=== PATIENT | male | born 1950 | race Caucasian/White ===

== ENCOUNTER → 2019-12-19 | Outpatient (CLI) | payer MEDICARE, OTHER ==
--- NOTE | 2019-12-20 09:06 | ECHOF ---
Referral Reason:R94.31 Abnormal ekg MEASUREMENTS -------- HEIGHT: 180.3 cm WEIGHT: 86.2 kg BP: IVSd: 1.3 cm (0.6 - 1.1) LVIDd: 5.3 cm (3.9 - 5.3) LVPWd: 1.3 cm (0.6 - 1.1) IVSs: 1.5 cm LVIDs: 3.2 cm LVPWs: 2.0 cm LAESV Index (A-L): 24.81 ml/m Ao Diam: 3.2 cm (2.0 - 3.7) AV Cusp: 1.6 cm (1.5 - 2.6) LA Diam: 4.0 cm (2.7 - 3.8) MV EXCURSION: 21.171 mm (> 18.000) MV EF SLOPE: 116 mm/s (70 - 150) EPSS: 3.4 cm MV E Charlie: 1.19 m/s MV DecT: 226 ms MV A Charlie: 0.83 m/s MV E/A Ratio: 1.43 AV maxP.39 mmHg AV meanP.53 mmHg RAP: 5.00 mmHg RVSP: 11.44 mmHg FINDINGS -------- Resting bradycardia (HR<60bpm). This was a technically good study. The left ventricular size is normal. There is mild concentric left ventricular hypertrophy. Overa ll left ventricular systolic function is low-normal with, an EF between 50 - 55 %. Normal LAP. Grad e 1 Diastolic Dysfunction. The right ventricle is normal in size. The left atrial size is normal. Normal LA size by volume 22+/-6 ml/m2. The right atrial size is normal. The aortic valve was not well visualized. There is mild aortic stenosis present. Peak/mean gradie nt across the Aortic Valve is 20.39mmHg / 12.53mmHg. Can't exclude possible Bicuspid Aov. The mitral valve is normal. Mild mitral regurgitation is present. The tricuspid valve appears structurally normal. Mild tricuspid regurgitation present. Right vent ricular systolic pressure is normal at < 35 mmHg. There is no pulmonic regurgitation present. The aortic root size is normal. Normal inferior vena cava with normal inspiratory collapse consistent with estimated right atrial pre ssure of 5 mmHg. There is no pericardial effusion. CONCLUSIONS -------- 1. Resting bradycardia (HR<60bpm). 2. This was a technically good study. 3. The left ventricular size is normal. 4. There is mild concentric left ventricular hypertrophy. 5. Overall left ventricular systolic function is low-normal with, an EF between 50 - 55 %. 6. Normal LAP. Grade 1 Diastolic Dysfunction. 7. The right ventricle is normal in size. 8. The left atrial size is normal. 9. Normal LA size by volume 22+/-6 ml/m2. 10. The right atrial size is normal. 11. The aortic valve was not well visualized. 12. There is mild aortic stenosis present. 13. Peak/mean gradient across the Aortic Valve is 20.39mmHg / 12.53mmHg. 14. Can't exclude possible Bicuspid Aov. 15. The mitral valve is normal. 16. Mild mitral regurgitation is present. 17. The tricuspid valve appears structurally normal. 18. Mild tricuspid regurgitation present. 19. Right ventricular systolic pressure is normal at < 35 mmHg. 20. There is no pulmonic regurgitation present. 21. The aortic root size is normal. 22. Normal inferior vena cava with normal inspiratory collapse consistent with estimated right atrial pressure of 5 mmHg. 23. There is no pericardial effusion. [employer] HAND: Char Figueredo RDCS
== END | disposition home or self-care (01) ==
LOC: RADECHMAIN 12:55
PROVIDERS: ATTEND Family Medicine
DX: I08.3 Combined rheumatic disorders of mitral, aortic and tricuspid valves (principal)
CPT/HCPCS: 93306

== ENCOUNTER → 2019-12-21 | Outpatient (CLI) | payer MEDICARE, OTHER ==
[2019-12-21 13:24] LABS: HCT 44.6 % (39.0-53.0); HGB 14.6 gm/dL (13.0-17.5); MCH 31.4 pg (25.0-35.0); MCHC 32.7 g/dL (31.0-37.0); MCV 96.2 fL (80.0-100.0); Mean Platelet Volume 7.7; Platelet Count 173 k/uL (150-450); RBC 4.64 m/uL (4.30-5.90); WBC 6.8 k/uL (3.8-10.6)
[2019-12-21 13:31] LABS: African American GFR (CKD) >90 (>60 ml/min/1.73 sqM); Anion Gap 7 mmol/L; Blood Urea Nitrogen 18 mg/dL (9-20); Carbon Dioxide 31 mmol/L (22-30); Chloride 103 mmol/L (98-107); Glucose 128 mg/dL (74-99); Non-African American GFR(CKD) 89 (>60 ml/min/1.73 sqM); Potassium 4.1 mmol/L (3.5-5.1); Sodium 141 mmol/L (137-145)
== END | disposition home or self-care (01) ==
LOC: LABPAT 12:24
PROVIDERS: ATTEND Internal Medicine Cardiovascular Disease
DX: Z01.812 Encounter for preprocedural laboratory examination (principal); E78.5 Hyperlipidemia, unspecified; R94.31 Abnormal electrocardiogram [ECG] [EKG]
CPT/HCPCS: 80051; 82565; 82947; 84520; 85027

== ENCOUNTER 2019-12-27 09:52 | Day surgery (SDC) | payer MEDICARE, OTHER ==
[2019-12-25 11:03] VITALS: BMI 27.2
[~2019-12-27 09:52] MED LIST: ceFAZolin 1,000 MG in SODIUM CHLORIDE 0.9% IRRIGATIO 250 ML IRRIGATION ONE
[2019-12-27] MEDS ORDERED: SODIUM CHLORIDE 0.9% 500 ML 500 ML IV ONE (10:15)
[2019-12-27] MEDS ORDERED: IOPAMIDOL-250 100ML BTL IV ONE (11:15)
[2019-12-27] MEDS ORDERED: fentaNYL (PF) 50 MCG/ML 2 ML AMP ONE (11:20)
[2019-12-27] MEDS ORDERED: fentaNYL (PF) 50 MCG/ML 2 ML AMP IV ONE (11:31)
[2019-12-27] MEDS ORDERED: MIDAZOLAM 2 MG/2 ML VIAL IVP ONE ×2 (11:32→13:00)
[2019-12-27] MEDS ORDERED: LIDOCAINE 1% INJ 10MG/ML (20 ML MDV) SQ ONE ×2 (11:39→11:46)
[2019-12-27] MEDS ORDERED: LIDOCAINE 1% INJ 10MG/ML (20 ML MDV) ONE (12:32)
--- NOTE | 2019-12-27 13:52 | P.PCN ---
Date of Procedure: 12/27/19 Preoperative Diagnosis: Complete heart block and bradycardia Postoperative Diagnosis: The same Procedure(s) Performed: Insertion of temporary pacemaker and dual-chamber permanent pacemaker insertion and also axillary venography Description of Procedure: HISTORY: This is a 69-year-old gentleman who was recently found to have bradycardia and complete A-V block. Patient was referred for permanent pacemaker implantation. CONSENT:I have discussed the risks, benefits and alternative therapies for the above-mentioned procedure and for both sedation/analgesia as well as necessary blood product administration, if indicated, as they pertain to this patient. The patient has indicated understanding and acceptance of the risks and procedures discussed. PROCEDURE: TEMPORARY PACEMAKER INSERTION: The right groin is infiltrated with lidocaine, after giving IV sedation with Versed and fentanyl. Attempts were made to enter the femoral vein and successfully . Femoral artery was entered with a needle. After several attempts, the procedures and abandoned and hemostasis was obtained with manual compression. Subsequently temporal pacemaker was inserted through the axillary vein. Patient was brought to the lab in a fasting state. Patient was prepped and draped in the usual fashion. Patient was given IV sedation with fentanyl and Versed. The skin below the left clavicle was infiltrated with lidocaine. An incision was made parallel to deltopectoral groove was deepened until the pectoral fascia was exposed. A pocket was created by blunt dissection and cautery. Axillary venography was performed to delineate the course of the axillary vein. 2 sticks were performed into extrathoracic portion of the axillary vein and 2 sheaths were advanced over the guidewires and left in subclavian vein. Through the first sheath, a temporary pacemaker was advanced and was placed in the right ventricular septal region. A satisfactory threshold was obtained and it temporary pacemaker was set at a rate of 35 and output of 3. Conscious Sedation: Versed 2mg Fentanyl 50 g Duration 110minutes LEADS: ATRIAL: This is manufactured by [employer]. Model number is 5076-52 and the serial number is [id number] VENTRICULAR: This is manufactured by [employer]. Model number is 5076-58, serial number is [id number] New THE DEVICE: This is manufactured by [employer]. Model number is [id number] and the serial number is [id number] The ventricular lead is maneuvered l with help of a straight and curved stylets into the left ventricle apical region. Satisfactory position was obtained and threshold measurements were made.The lead was screwed in. The temporary pacemaker was was subsequently removed. Through the second sheath, the atrial lead was then maneuvered into the right atrial appendage. And thresholds were obtained. THRESHOLDS: ATRIUM: The minimum pacing threshold is 1.25 V at pulse width of 0.4. P-wave: 3 and the impedance is 570. VENTRICLE: The minimum pacing threshold is 0.75 at pulse width of 0.4. R-wave: Not obtained. The impedance is 684. The leads and pulse generator remained in the pocket after it was washed with antibiotics. Pocket was closed in the usual fashion. The fascia was closed with 2-0 Prolene ,the subcutaneous tissue was closed with 3-0 Prolene and the skin was closed with 4-0 Prolene. PROGRAMMING: MODE: DDDR RATE: 60 to 130 OUTPUT: Atrium : 3.5 Ventricle: 3.5 FINAL IMPRESSION: #1. Temporary pacemaker insertion #2. Axillary venography #3. Dual-chamber permanent pacemaker implantation COMPLICATIONS: None PLAN: Continue prophylactic antibiotics. Monitor on the telemetry unit. Chest x-ray in the morning. If thresholds are stable, patient will be discharged home tomorrow
[2019-12-27] MEDS: SODIUM CHLORIDE 0.9% 1,000 ML IV SCH (15:05)
[2019-12-27] MEDS ORDERED: ATORVASTATIN 20 MG TAB PO SCH (21:00)
[2019-12-27] MEDS: ACETAMINOPHEN TAB 325 MG TAB PO PRN (23:40)
[2019-12-28 03:33] VITALS: RESP 18
[2019-12-28] MEDS: SODIUM CHLORIDE 0.9% 1,000 ML IV SCH (03:56)
--- NOTE | 2019-12-28 07:38 | XR ---
EXAMINATION TYPE: XR chest 2V DATE OF EXAM: 12/28/2019 COMPARISON: NONE HISTORY: Arrhythmia status post pacemaker. TECHNIQUE: Frontal and lateral views of the chest are obtained. FINDINGS: There is background Chronic emphysematous and parenchymal fibrotic changes without suspici ous focal air space opacity, pleural effusion, or pneumothorax seen. The cardiac silhouette size is within normal limits with dual-lead pacemaker having leads terminating in right atrium and right vent ricle. The osseous structures are intact. Overlying EKG leads are present. Note is made the most medial wire at the level of the pacemaker battery pack has disconnected or disl odged from the proximal connecting wire. (Frontal image marked on PACS) IMPRESSION: As above.
--- NOTE | 2019-12-28 08:32 | P.DS ---
Providers Date of admission: 08/20/2020 Attending physician: Mega Galarza Primary care physician: Shekhar Ward - Discharge Diagnosis(es) (1) Complete heart block Current Visit: Yes Status: Acute (2) Presence of permanent cardiac pacemaker Current Visit: Yes Status: Acute (3) Hyperlipidemia Current Visit: Yes Status: Acute Hospital Course: This is 69-year-old gentleman was recently found to be bradycardic with complete AV dissociation. Patient was brought in for elective permanent pacemaker implantation yesterday. Patient had a procedure yesterday and tolerated very well. He remained stable overnight. Patient is 100% ventricular pacing. His site is dry without any hematoma. Chest x-ray showed proper lead position. There are questionable description of lead disconnect by the radiologist. It seems to be normal structure and nothing to do with the leads. We'll discuss with [employer] rep. Patient's activities to be increased. If device and progress as was proper thresholds, patient will be discharged home later today. Patient will continue home medications. He'll be sent on antibiotic for 3 days. Follow-up in the office in one week. Plan - Discharge Summary Discharge Rx Participant: Yes New Discharge Prescriptions: No Action Atorvastatin [Lipitor] 20 mg PO HS Discharge Medication List Atorvastatin [Lipitor] 20 mg PO HS 12/25/19 [History]
[2019-12-28] MEDS: ACETAMINOPHEN TAB 325 MG TAB PO PRN (11:19)
[2019-12-28 12:36] VITALS: BP 158/79; PULSE 73; TEMP 97.7
== END 2019-12-28 13:17 | disposition home or self-care (01) ==
LOC: CATHEP 09:52 → 1SOBS 13:41 → CATHEP 12-28 13:17
PROVIDERS: ATTEND Internal Medicine Cardiovascular Disease
DX: I44.2 Atrioventricular block, complete (principal); R00.1 Bradycardia, unspecified; E78.5 Hyperlipidemia, unspecified; Z87.891 Personal history of nicotine dependence; Z79.899 Other long term (current) drug therapy
CPT/HCPCS: 33208; 71046; C1769 ×2; C1892; C1898; C1785; J2250; J0690 ×3; J2001; J3010; Q9966